=== PATIENT | female | born 1945 | race Caucasian/White ===

== ENCOUNTER 2023-10-14 17:00 | Emergency (ER) | payer MEDICARE, BC, SELFPAY ==
[2023-10-14 17:00] VITALS: BP 116/66; PULSE 68; RESP 16; TEMP 35.7; O2SAT 98; BMI 20.9
--- NOTE | 2023-10-14 17:39 | CT_ITS ---
STUDY: CT BRAIN WITHOUT CONTRAST REASON FOR EXAM: Female, 78 years old. fall pain RADIATION DOSAGE (If Supplied By Facility): CTDIvol = ( 44.99 ) mGy, DLP = ( 745.49 ) mGycm TECHNIQUE: Transaxial CT imaging of the brain was performed without administration of intravenous contrast material. Individualized dose optimization techniques were used for this CT. COMPARISON: No relevant priors. FINDINGS: Normal soft tissue structures. Normal calvarium. Normal size ventricles and extra-axial spaces for the patient''s age. There are areas of decreased attenuation within the white matter tracts of the supratentorial brain, consistent with microvascular disease changes. Normal basal ganglia and thalami. Normal brainstem. Normal cerebellum. There is no intracranial hemorrhage. There are no findings of an acute ischemic infarction. Normal visualized paranasal sinuses. CT/Brain/Head without Contrast IMPRESSION: Chronic involutional changes of the brain. No acute abnormality. Electronically Signed: Derek Barboza MD at 18:16 EDT ,
[2023-10-14 19:00] VITALS: BP 144/78; PULSE 60; RESP 16; O2SAT 100
--- NOTE | 2023-10-14 20:18 | EDS_ITS ---
HPI History of Present Illness Chief Complaint: Head Injury Informant: patient Onset/Context/Timing Onset: Today Mechanism/Context: Blunt Injury and Fall Current Severity: Mild Maximum Severity: Mild Associated Symptoms Associated Symptoms: Negative for Parasthesias, Weakness, Loss of function, Inability to ambulate, Loss of consciousness or Amnesia Narrative Narrative: 78-year-old female history of hypothyroidism and diabetes. Stood up from a chair lost her balance and the chair kicked out from under and fell backwards hitting the counter. No LOC. No blood thinners. Denies any neck pain. No other injuries. Prior similar symptoms: No Recent Illness/Hospitalization: No PFSH PFSH Medical History no medical history Home Medications ?Medication ?Instructions ?Recorded ?Last Taken ?Type ondansetron 4 mg disintegrating 4 mg PO Q8H PRN PRN Nausea #10 tabs 11/14/16 Unknown Rx tablet Allergy/AdvReac Type Severity Reaction Status Date / Time No Known Allergies Allergy Verified 10/14/23 17:03 Social History Smoking Status: Never smoker ROS ROS ED ROS Narrative Denies recent illness. Review of Systems ROS Unobtainable: Denies due to encephalopathy Constitutional Constitutional ED: Denies chills or fever(s) Eyes Eyes: Denies blurry vision ENT ENT ED: Denies ear pain Cardiovascular Cardiovascular: Denies chest pain Respiratory/Chest Respiratory/Chest: Denies cough or dyspnea Gastrointestinal Gastrointestinal: Denies abdominal pain Genitourinary Genitourinary ED: Denies dysuria or hematuria Musculoskeletal Musculoskeletal: Denies arthralgias or back pain Integumentary Denies abscess or Abrasions Neurologic Neurologic: Denies headache(s) Psychiatric Psychiatric: Denies anxiety or depression Endocrine Endocrinology: Denies cold intolerance Hematologic/Lymphatic Hematologic/Lymphatic: Denies easy bleeding, easy bruising or lymphadenopathy Allergic/Immunologic Allergic/Immunologic ED: Denies mouth swelling, tongue swelling or urticaria EXAM Physical Exam Narrative Exam Narrative: Well-appearing 78-year-old female. Vital signs stable afebrile. Pulse ox 90% room air no hypoxia. H EENT exam pupils round react light. No facial trauma. Posterior scalp 1 inch hematoma. Mild abrasion. No bleeding or laceration. Neck nontender. Lungs clear to auscultation bilaterally. Heart regular rhythm no murmur. Chest wall and ribs nontender. Back nontender. Abdomen soft nontender. Pelvic girdle intact. Moving all 4 extremities. 5 of 5 head animal keeper strength. Dorsi plantarflexion intact. Normal range of motion. No acute deformity. No shortening or rotation of the lower extremities. Neurologically she is awake alert answering questions following commands. GCS 15. Const Vital Signs: 10/14/23 17:00 10/14/23 19:00 Temperature 96.2 F L Temperature Source Temporal Pulse Rate 68 60 Respiratory Rate 16 16 Blood Pressure 116/66 144/78 H Blood Pressure Mean 82 100 Pulse Ox 98 100 Oxygen Delivery Method Room Air Positive well nourished and well developed; Negative for obese, cachectic, contractures or unkempt General Appearance ED: well developed and NAD; Negative for unkempt, cachectic or contractures Nutritional Appearance: Negative for cachectic or obese HEENT HEENT Narrative: Posterior scalp abrasion and hematoma. trauma and tenderness; Negative for atraumatic Eyes PERRL and EOMs intact bilaterally Neck full ROM General: Negative for tenderness Chest Wall inspection of chest normal and palpation of chest normal Breast/Axilla Inspection: Negative for other Resp normal respiratory effort and clear to auscultation bilaterally Effort and Inspection: Negative for pain with movement Auscultation: Negative for rales, rhonchi, wheezes, diminished lung sounds or other Cardio regular rhythm, S1 normal heart sound, S2 normal heart sound and no murmurs Jugular Venous Distention: Negative for other Palpation: Negative for palpable S3 or palpable S4 Rate: regular rate; Negative for bradycardia or tachycardic Rhythm: Negative for abnormal rhythm GI normal to inspection, nondistended, normoactive bowel sounds, non-tender, non- distended and no masses Auscultation: normoactive bowel sounds Palpation: soft; Negative for tender, guarding or rebound tenderness present Back/Spine normal to inspection and no thoracic nor lumbar tenderness General Back: Negative for CVA tenderness Thoracic Spine / Upper Back: Negative for thoracic spinal tenderness Extremity normal to inspection and full ROM General Extremety ED: Negative for deformity, edema or tenderness General Extremity: Negative for deformity or edema Neuro oriented x3, CN's II-XII intact bilaterally, moves all extremities and no focal motor deficits [place] Coma Scale: document GCS findings Spontaneous Obeys Commands Oriented 15 Sensorium / Orientation: alert, oriented to person, oriented to place and oriented to time; Negative for orientation impaired, lethargic or stuporous Motor Exam: strength 5/5 throughout Psych mental status grossly normal and thought process normal Appearance: Negative for unkempt Attitude: No agitated Mood & Affect: Negative for depressed, anxious or tearful Skin no rashes or lesions noted, no wounds, skin turgor normal and no jaundice Skin Narrative: Posterior scalp hematoma and abrasion. General Skin Exam: Negative for other Rashes: No rashes noted MDM MDM MDM Narrative Medical decision making narrative: 78-year-old fell at home when she lost her balance hit her head on the counter. CAT scan shows chronic changes. No fracture or bleed. Exam is benign. I did call her son and he is coming to pick her up. I gave her head injury instructions and told both and what to watch for. She did not want any Tylenol or anything for pain. Radiography Diagnostic Testing: Clinical Impression(s) from Imaging Studies Brain CT 10/14/23 17:39 IMPRESSION: Chronic involutional changes of the brain. No acute abnormality. Electronically Signed: Derek Barboza MD at 18:16 EDT , Discharge Plan Triage Chief Complaint: Head Injury ED Provider: Byron Orozco Dx/Rx/DC Orders Clinical Impression: Fall, Closed head injury, Hematoma of scalp, History of diabetes mellitus Instructions: ED Concussion Prescriptions: No Action ondansetron 4 MG tablet 4 mg PO Q8H PRN PRN (Reason: Nausea) Qty: 10 0RF Primary Care Provider: Sabi Morris Referrals: Sabi Morris MD [Primary Care Provider] - As Needed Activity Restrictions/Additional Instructions: Ice to your scalp. Tylenol for pain. Follow-up with your doctor as needed. Return if severe headache, intractable vomiting or not acting right. Your CAT scan tonight look good. Print Language: Indonesian Disposition Disposition: Home, Self Care
[2023-10-14 20:23] VITALS: BP 138/90; PULSE 54; RESP 16; TEMP 36.6; O2SAT 96
== END 2023-10-14 20:30 | disposition home or self-care (01) ==
LOC: ED 20:30
PROVIDERS: Emergency Provider Emergency Medicine; PCP Internal Medicine; Visit Provider Emergency Medicine
DX: S00.03XA Contusion of scalp, initial encounter (principal); E11.9 Type 2 diabetes mellitus without complications; W07.XXXA Fall from chair, initial encounter
CPT/HCPCS: 70450; 99282